=== PATIENT | female | born 1980 | race Caucasian/White ===

== ENCOUNTER 2020-07-10 09:33 | Day surgery (SDC) | payer OTHER ==
[~2020-07-10 09:33] MED LIST: Lactated Ringers 1,000 ML IV SCH
--- NOTE | 2020-07-10 10:20 | PCM.PREANE ---
Preanesthetic Assessment - Anesthesia/Transfusion/Family Hx Anesthesia History: Prior Anesthesia Without Reaction Family History of Anesthesia Reaction: No Transfusion History: No Prior Transfusion(s) - Review of Systems General: No Symptoms Pulmonary: No Symptoms Cardiovascular: No Symptoms Gastrointestinal: No Symptoms Neurological: No Symptoms Other: Reports: None - Physical Assessment NPO Status Date: 07/09/20 Vital Signs: Last Vital Signs Temp 97.2 F 07/10/20 09:45 Pulse 64 07/10/20 09:45 Resp 15 07/10/20 09:45 BP 124/69 07/10/20 09:45 Pulse Ox 100 07/10/20 09:45 Height: 5 ft 9 in Weight: 68.946 kg ASA Class: 2 Mental Status: Alert & Oriented x3 Airway Class: Mallampati = 2 Dentition: Reports: Normal Dentition ROM/Head Extension: Full Lungs: Clear to Auscultation, Normal Respiratory Effort Cardiovascular: Regular Rate, Regular Rhythm - Allergies Allergies/Adverse Reactions: Allergies Allergy/AdvReac Type Severity Reaction Status Date / Time No Known Allergies Allergy Verified 07/09/20 11:02 - Blood Blood Available: No - Anesthesia Plan Pre-Op Medication Ordered: None - Acknowledgements Anesthesia Type Planned: General Anesthesia Pt an Appropriate Candidate for the Planned Anesthesia: Yes Alternatives and Risks of Anesthesia Discussed w Pt/Guardian: Yes Pt/Guardian Understands and Agrees with Anesthesia Plan: Yes PreAnesthesia Questionnaire HEENT History: Reports: Other (See Below) Other HEENT History: 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 [No Known Home Meds] 07/09/20 [History] - CURRENT (IN HOUSE) MEDS Current Meds: Current Medications Lactated Ringer's (Ringers, Lactated) 1,000 mls @ 100 mls/hr IV ASDIRECTED [facility]
[2020-07-10] MEDS ORDERED: fentaNYL 100 MCG/2 ML SDV ONE (10:55)
[2020-07-10] MEDS ORDERED: Propofol 200 MG/20 ML SDV ONE ×2 (10:55→11:07)
[2020-07-10] MEDS ORDERED: Midazolam 1 MG/ML 2 ML SDV ONE (10:55)
[2020-07-10] MEDS ORDERED: Ondansetron 4 MG/2 ML SDV ONE (11:14)
[2020-07-10] MEDS ORDERED: Dexamethasone 4 MG/ML 5 ML MDV ONE (11:14)
[2020-07-10] MEDS ORDERED: Ketorolac 30 MG/ML SDV ONE (11:20)
--- NOTE | 2020-07-10 11:29 | PCM.OPNOTE ---
- General Post-Op/Procedure Note Date of Surgery/Procedure: 07/10/20 Operative Procedure(s): Suction dilation and curettage Findings: Products of conception Pre Op Diagnosis: Missed Post-Op Diagnosis: Same Anesthesia Technique: General LMA Primary Surgeon: Millie Molina Secondary Surgeon: Adela Sharma ([id number]) Pathology: Products of conception Fluid Replacement, Intraop: 500 Output, Urine Amount: 150 EBL in mLs: 200 Complications: none known Condition: Stable
--- NOTE | 2020-07-10 12:21 | PCM.POSTAN ---
POST ANESTHESIA ASSESSMENT - MENTAL STATUS Mental Status: Alert, Oriented - VITAL SIGNS Vital Signs: Last Vital Signs Temp 98.1 F 07/10/20 11:28 Pulse 65 07/10/20 11:48 Resp 19 07/10/20 11:48 BP 102/50 L 07/10/20 11:48 Pulse Ox 100 07/10/20 11:48 - RESPIRATORY Respiratory Status: Respiratory Rate WNL, Airway Patent, O2 Saturation Stable - CARDIOVASCULAR CV Status: Pulse Rate WNL, Blood Pressure Stable - GASTROINTESTINAL GI Status: No Symptoms - POST OP HYDRATION Hydration Status: Adequate & Stable
--- NOTE | 2020-07-10 12:22 | PCM48HPAN ---
Post Anesthesia Note - EVALUATION WITHIN 48HRS OF ANESTHETIC Vital Signs in Normal Range: Yes Patient Participated in Evaluation: Yes Respiratory Function Stable: Yes Airway Patent: Yes Cardiovascular Function Stable: Yes Hydration Status Stable: Yes Pain Control Satisfactory: Yes Nausea and Vomiting Control Satisfactory: Yes Mental Status Recovered: Yes Vital Signs: Last Vital Signs Temp 98.1 F 07/10/20 11:28 Pulse 65 07/10/20 11:48 Resp 19 07/10/20 11:48 BP 102/50 L 07/10/20 11:48 Pulse Ox 100 07/10/20 11:48
[2020-07-10 12:47] VITALS: BP 105/63; PULSE 59
--- NOTE | 2020-07-10 12:59 | OR ---
SURGEON: Millie Molina M.D. DATE OF PROCEDURE: 07/10/2020 PREOPERATIVE DIAGNOSIS: Missed . POSTOPERATIVE DIAGNOSIS: Missed . PROCEDURE: Suction dilatation and curettage. PRIMARY SURGEON: Millie Molina MD FILER METAL PATTERNS: Adela Sharma [id number] ANESTHESIA: General LMA. ESTIMATED BLOOD LOSS: 200 mL. FLUIDS: 500 mL of crystalloid. FINDINGS: Prior to the procedure, the uterus was anteverted, 8-week size, somewhat boggy. Postoperatively, the uterus was anteverted, 6-week size, firm with minimal bleeding. COMPLICATIONS: None known. DISPOSITION: Stable to Recovery. PATHOLOGY SPECIMEN: Uterine contents. BRIEF HISTORY: This is a 40-year-old female, G2, P 1-0-0-1. She is Rh positive. She presented for initial OB visit. The embryo was delayed by 2 weeks from given LMP with no heart beat, however, was only 5 weeks 6 days, and therefore, I did request that she come back in approximately 10 days for further assessment and there was no embryonic growth, there were no embryonic heart tones, and she had begun to bleed. I did offer her expectant management versus Cytotec augmentation versus suction D and C. She desired suction D and C with risks discussed including bleeding, infection, uterine perforation with injury to surrounding organs, risk of Asherman syndrome, and risk of anesthesia. Understanding all these risks, she does desire to proceed. DESCRIPTION OF PROCEDURE: With the patient in dorsal lithotomy position, under adequate LMA analgesia, the perineum and vagina were prepped with Betadine and draped in usual fashion for vaginal surgery. SCDs were in place and the bladder had been drained with a red Funk catheter. After an appropriate time-out was held, bimanual examination was performed with findings as noted above. Speculum was placed in the vagina. The anterior lip of the cervix was grasped with an Allis clamp. The uterus sounded to 9 cm. The cervix was dilated to an 8 mm Hegar dilator. The 8 mm suction curette was placed to the uterine fundus and repetitively removed while turning in a clockwise manner until no further tissue was obtained. A sharp curettage was then performed at the 12, 3, 6, and 9 o'clock position. There was a good uterine cry from each surface. After evaluation with the sharp curette, two additional passes were taken with the suction curette and there was no further tissue obtained. There was minimal bleeding. Therefore, all the instruments were removed from the vagina. Bimanual examination was repeated with an anteverted 6-week size uterus, firm. Final sponge, needle, and instrument counts were reported as correct. There were no known complications. The patient was transferred to Recovery in good condition. ESTUARDO / DASHA /[id number]
== END 2020-07-10 12:35 | disposition home or self-care (01) ==
LOC: MW.SDS 09:33
PROVIDERS: ATTEND Obstetrics & Gynecology
DX: O02.1 Missed abortion (principal); Z91.030 Bee allergy status; Z98.890 Other specified postprocedural states
CPT/HCPCS: 36415; 59820; 85027; 86850; 86900; 86901; 88305; J1100; J1885; J2250; J2405; J2704; J3010; J7120